=== PATIENT | female | born 1990 | race Caucasian/White ===

== ENCOUNTER 2020-08-14 08:12 | Outpatient (REF) | payer MEDICARE, MEDICAID, SELFPAY ==
[2020-08-14 11:13] LABS: MANUAL DIFF FLAG NO
[2020-08-14 11:19] LABS: Basophils Percent Auto 0.5 % (0-2); Eosinophils Absolute Auto 0.2 X10*3/uL (0.0-0.4); Eosinophils Percent Auto 2.5 % (0-4); Hematocrit 38.6 % (37-47); Hemoglobin 12.8 g/dl (12.0-16.0); Imm Gran Abs Auto 0.02 X10*3/uL (0.00-0.03); Imm Gran Pct Auto 0.3 % (0.0-0.4); Lymphocytes Absolute Auto 2.4 X10*3/uL (1.2-4.9); Lymphocytes Percent Auto 40.8 % (20-40); Mean Corpuscular HGB Conc 33.2 g/dl (31.0-35.0); Mean Corpuscular Hemoglobin 28.6 pg (27.0-33.0); Mean Corpuscular Volume 86.4 fL (80-98); Mean Platelet Volume 9.6 fL (9.4-12.3); Monocytes Absolute Auto 0.5 X10*3/uL (0.1-1.2); Neutrophils Absolute Auto 2.8 X10*3/uL (2.0-8.3); Neutrophils Percent Auto 46.9 % (45-73); Platelet Count 220 X10*3/uL (160-400); Red Blood Count 4.47 X10*6/uL (4.20-5.50); Red Cell Distribution Width 12.1 % (11.0-16.0); White Blood Count 5.9 X10*3/uL (4.8-10.8)
[2020-08-14 12:09] LABS: TSH reflex Free T4 0.84 uIU/mL (0.32-4.0); Vitamin D 25-OH Total 37.9 ng/mL (>30)
[2020-08-14 12:13] LABS: Folate 19.2 ng/mL (> or = 4.0); Vitamin B12 689 pg/mL (200-900)
[2020-08-14 12:16] LABS: Alanine Aminotransferase 20 U/L (0-31); Albumin Level 4.4 g/dL (3.5-5.0); Alkaline Phosphatase 47 U/L (39-117); Anion Gap 11 (12-20); Aspartate Amino Transferase 23 U/L (5-31); Bilirubin Total 0.2 mg/dL (0.0-1.0); Blood Urea Nitrogen 11 mg/dL (9-16); Calcium 9.2 mg/dL (8.4-10.2); Carbon Dioxide 29 mmol/L (22-29); Chloride 105 mmol/L (96-108); Cholesterol 128 mg/dL; Estimated Glomerular Filt Rate > 60; Glucose Fasting 84 mg/dL (60-99); HDL Cholesterol 53 mg/dL; LDL Cholesterol Calculated 67 mg/dl; Sodium 141 mmol/L (135-145); Total Protein 7.2 g/dL (6.5-8.0); Triglycerides 44 mg/dL
== END 2020-08-14 08:13 | disposition home or self-care (01) ==
LOC: HO.HMGCLDS 08:12
PROVIDERS: PCP Internal Medicine; Visit Provider Internal Medicine
DX: Z00.01 Encounter for general adult medical examination with abnormal findings (principal); K59.09 Other constipation; R12 Heartburn; F43.10 Post-traumatic stress disorder, unspecified; F31.9 Bipolar disorder, unspecified
CPT/HCPCS: 36415; 80053; 80061; 82306; 82607; 82746; 84443; 85025

== ENCOUNTER → 2020-09-20 08:51 | Outpatient (BNVA) | payer MEDICARE, MEDICAID, SELFPAY | PROVIDERS: PCP Internal Medicine; Visit Provider Physician Assistant | DX: Z13.89 Encounter for screening for other disorder (principal) | CPT/HCPCS: Q3014 ==

== ENCOUNTER 2020-11-27 17:58 | Emergency (ER) | payer MEDICARE, MEDICAID, SELFPAY ==
[2020-11-27 19:15] VITALS: BP 107/72; PULSE 77; RESP 16; TEMP 36.5; O2SAT 98; BMI 18.5
--- NOTE | 2020-11-27 19:40 | PC.NURSE ---
PT REPORTS AWAKENING WITH SMALL BUMP TO LEFT SIDE OF HEAD 2 DAYS AGO- DENIES TRAUMA, NO OTHER LUMPS NOTED ON SCALP. EVALUATED BY TIA GARIBAY. AWAITING ABX ADMINISTRATION AND DC.
--- NOTE | 2020-11-27 19:57 | ED_ITS ---
HPI - General Adult General Chief complaint: General Medical Stated complaint: head injury Time Seen by Provider: 11/27/20 19:32 Source: patient Mode of arrival: ambulatory Limitations: no limitations History of Present Illness HPI narrative: Patient presents to ED for small painful lump on left scalp. Patient states she woke up with it 3 days ago. Patient denies any head trauma, headache, dizziness, nausea, vomiting, fever, chills. Related Data Previous Rx's Medication Instructions Recorded methylcellulose (laxative) 500 mg 500 mg PO BID #60 tab 09/20/20 tablet omeprazole 20 mg capsule,delayed 20 mg PO DAILY #30 cap 09/20/20 release cephalexin 500 mg PO QID #28 cap 11/27/20 mupirocin 1 appl TOPICAL TID 7 Days #22 g 11/27/20 Allergies Allergy/AdvReac Type Severity Reaction Status Date / Time No Known Allergies Allergy Verified 09/20/20 08:51 Review of Systems Review of Systems: Yes all other systems are reviewed and are negative Constitutional: Constitutional: Reports as per HPI and Reports no additional constitutional complaints Eyes: Eyes: Reports as per HPI and Reports no additional eye complaints ENT: Reports system reviewed and no additional complaints, except as documented and Reports as per HPI Comments: Small lump Cardiovascular: Cardiovascular: Reports as per HPI and Reports no additional cardiovascular complaints Comments: small lump on left scalp Respiratory: Respiratory: Reports as per HPI and Reports no additional respiratory complaints Gastrointestinal: Gastrointestinal: Reports as per HPI and Reports no additional gastrointestinal complaints Genitourinary: Genitourinary: Reports no additional female genitourinary complaints and Reports as per HPI Musculoskeletal: Musculoskeletal: Reports no additional musculoskeletal complaints and Reports as per HPI Neurologic: Reports system reviewed and no additional complaints, except as documented and Reports as per HPI Psychiatric: Psychiatric: Reports no additional psychiatric complaints and Reports as per HPI PMF Past Medical History Medical History (Updated 11/27/20 @ 20:29 by LANI Austin) Anxiety Bipolar 1 disorder Chronic constipation Chronic heartburn Cleft palate Hearing impairment Hx of cleft palate Ovarian cancer PTSD (post-traumatic stress disorder) Speech impediment Surgical History (Updated 09/20/20 @ 08:52 by KEVON oRgers) H/O colonoscopy History of esophagogastroduodenoscopy (EGD) Hx of tooth extraction Family History Family History Father Family hx of hypertension Hx of Lyme disease Mother History of COPD Social History Social History (Updated 09/20/20 @ 09:15 by Vanesa Campos PA-C) Household Members: None Household Members Other:: Boyfriend Alcohol intake: never Patient Tobacco Use Status: Never used Tobacco Use of substances other than those prescribed or required for medical reasons: No Substance Use Type: Marijuana Advance Directives: No Advance Directives Information Provided: Yes Patient : No Physical Exam Vital Signs: Vital Signs: Last Vital Signs Temp 97.7 F 11/27/20 19:15 Pulse 77 11/27/20 19:15 Resp 16 11/27/20 19:15 BP 107/72 11/27/20 19:15 Pulse Ox 98 11/27/20 19:15 Body Mass Index 18.5 Const: General: cooperative, healthy appearing, comfortable, no acute distress, well developed, alert, awake and Physically active Orientation/consciousness: patient oriented x3 HENMT: Other: left parietal follictulitis Head: Yes normal to inspection, Yes No palpable skull fracture present, Yes normocephalic, Yes atraumatic, No abras ion, No Acrocyanosis present, No Avelar's sign, No raccoon eyes and Yes scalp lesion (Small area of erythema with tender lump, but not fluctulant.) Eyes: General: appearance normal, both eyes and all related structures Neck: Neck: Yes normal visual inspection, Yes full ROM, Yes no lymphadenopathy, Yes no meningeal signs, Yes trachea midline, Yes supple and No tender Chest: Chest palpation & inspection: normal inspection of the chest and normal palpation of entire chest wall Resp: Effort & Inspection: normal respiratory effort and able to speak in complete sentences Auscultation: clear to auscultation bilaterally Cardio: Jugular venous distension: no JVD Heart sounds: S1 normal heart sound present and S2 normal heart sound present GI: Inspection: Yes normal to inspection and No abdominal wall ecchymosis Palpation (GI): not soft, not firm, nontender, no guarding and not rigid : General: No CVA tenderness and Yes no CVA tenderness Back/Spine/Pelvis: Back: no CVA tenderness, No CVA tenderness and No back tenderness Skin: General skin exam: no rashes or lesions noted and elasticity normal Neuro: General: patient oriented x3, gait normal, no meningeal signs and CN's II-XI intact bilaterally Cranial nerves: Yes CN's II-XII intact bilaterally Extrem: General: Yes normal to inspection and Yes full ROM Psych: Appearance: grossly normal, poorly kempt and not disheveled Course Course Course Narrative: Mild folliculitis. No abscess needed for drainage Reevaluation(s) Reevaluation #1: Discharged with antibiotics. Patient will be discharged with muciporin and cephalexin. Time: 20:26 Medical Decision Making [facility] Narrative Medical decision making narrative: folliculitis Discharge Plan Discharge Clinical Impression: Folliculitis Patient Disposition: Home, Self-Care Instructions: Folliculitis (ED) Additional Instructions: return to the ED increased in size, worsening redness, pus discharge, headache, fever, chills, or any other concerning symptoms. Please follow up with PCP Prescriptions: New mupirocin 2 % ointment 1 appl topical TID 7 Days Qty: 22 RF: 0 cephalexin 500 mg capsule 500 mg PO QID Qty: 28 RF: 0 No Action omeprazole 20 mg capsule,delayed release(DR/EC) 20 mg PO DAILY Qty: 30 RF: 5 Citrucel 500 mg tablet 500 mg PO BID Qty: 60 RF: 5 Interventions: ED Discharge Assessment Last Done: 11/27/20 21:03 Discharge Date/Time: 11/27/20 21:04 Print Language: Kyrgyz
== END 2020-11-27 21:04 | disposition home or self-care (01) ==
PROVIDERS: Emergency Provider Emergency Medicine
DX: L73.9 Follicular disorder, unspecified (principal)
CPT/HCPCS: 99283; 99284

== ENCOUNTER 2021-04-04 13:29 | Outpatient (REF) | payer OTHER, MEDICAID, SELFPAY ==
--- NOTE | 2021-04-15 12:53 | MHC.AU.HAS ---
Hearing Aid Evaluation Date of Visit: 04/04/21 Historical Information: Description of Hearing: Moderate/moderately-severe mixed hearing loss bilaterally Summary: Patient was seen by ENT, Dr. Luu, who provided medical clearance for hearing aids. Patient has a history of cleft palate and chronic middle ear dysfunction. She experiences intermittent discharge from both ears and has narrow canals. History of developmental delay and mental health diagnoses. She has been using a BTE-like personal amplifier that was obtained from [employer]. She does not feel it has been meeting her needs. Patient was initially interested in customs and did not want them to visible. She was also interested in rechargeability for each of use. Discussed that due to her narrow canal size, the instruments would need to be made much larger than what she had in mind, and would likely be visible. It would also not be ideal to put electronics inside of her ear, with either a CIC or DIONTE, as the ear discharge could damage the electronics. Discussed that if we ever did try CICs, and the size of the instruments was her main concern, we would likely to need to have them made without Bluetooth or a rechargeable battery, as those options would increase the size of the instruments. Patient became visibly anxious, stating she wanted more time to think about it, and left the room. Her father, who accompanied her to the appointment, requested that we try a pair of hearing aids of my recommendation, and see how she likes them. We will try BTEs with slim tubes. Hearing Aid Prescription: Based on the individual?s shared listening needs, communication environments, dexterity, desire for connectivity, and personal preferences, the following prescription for amplification has been made: Right ear: Hammer Mill Operator: [employer] Model: Evolv AI 1600 BTE R Battery Size: Rechargeable Color: Champagne Tubing: Size 1 slim tube Left ear: Hammer Mill Operator: [employer] Model: Evolv AI 1600 BTE R Battery Size: Rechargeable Color: Champagne Tubing: Size 1 slim tube Action Taken/Action Needed: Hearing Instrument Fitting to be scheduled when materials arrive Primary Diagnosis: H90.6 Mixed Hearing Loss, Bilateral Signature: Provider: Lalit Siegel, CCC-A
== END 2021-04-04 13:30 | disposition home or self-care (01) ==
LOC: HO.HAP 13:29
PROVIDERS: Visit Provider Otolaryngology
DX: Z13.89 Encounter for screening for other disorder (principal)

== ENCOUNTER 2021-05-30 09:55 | Outpatient (REF) | payer OTHER, MEDICAID, SELFPAY ==
--- NOTE | 2021-05-30 12:29 | MHC.AU.HFU ---
Hearing Instrument Follow-Up- Binaural Date of Visit: 05/30/21 Right Ear: System Operator: [employer] Model: Evolv AI 1600 BTE R Serial Number: [id number] Repair Warranty: 08/17/2024 Battery Size: Rechargeable Color: Champagne Tubing: Size 1 slim tube Type of Wax Guard: NONE Date of Fitting: Unable to fit aids today per Cristel Ghotra. Cannot dispense each aid at separate appointments Left Ear: System Operator: [employer] Model: Evolv AI 1600 BTE R Serial Number: Battery Size: Rechargeable Color: Champagne Tubing: Size 1 slim tube Type of Wax Guard: NONE Follow-Up Summary: Patient scheduled for a Hearing Aid Fitting. Right aid able to connect to PAPA, but left would not despite several troubleshooting strategies and calling [employer] - Giovanna Cummings. Sending the left aid RFC and [employer] sending a replacement. (Note, after the aid was in the RFC package and I was completing paperwork, the aid started working when in the shipping box 15-20 minutes after last being taken off the upholstery instructor. Still asking for replacement as I do not want this to be a potentially ongoing problem for the patient.) Recommendations:WHEN REPLACEMENT IN, PLEASE CHARGE AND VERIFY BOTH AIDS ARE CONNECTING TO PAPA. Then call patient to schedule HAF. Diagnosis Code(s): Primary Diagnosis: H90.3 Bilateral Sensorineural Hearing Loss Signature: Provider: Lalit Woods, [facility]
== END 2021-05-30 09:56 | disposition home or self-care (01) ==
LOC: HO.HAP 09:55
DX: Z13.89 Encounter for screening for other disorder (principal)

== ENCOUNTER 2021-06-13 12:20 | Outpatient (REF) | payer OTHER, MEDICAID, SELFPAY ==
--- NOTE | 2021-06-13 14:15 | MHC.AU.HFA ---
Hearing Instrument Fitting- Adult- Binaural Date of Visit: 06/13/21 Hearing Instruments Dispensed: Right Ear: Medical Center Manager: [employer] Model: Evolv AI 1600 BTE R Serial Number: [id number] Repair Warranty: 08/17/2024 Loss and Damage Warranty: 08/17/2024 Battery Size: Rechargeable Color: Champagne Tubing: Size 1 slim tube Type of Dome: Size 7mm Occluded Comfort [place] Left Ear: Medical Center Manager: [employer] Model: Evolv AI 1600 BTE R Serial Number: [id number] Repair Warranty: 09/01/2024 Loss and Damage Warranty: 09/01/2024 Battery Size: Rechargeable Color: Champagne Tubing: Size 1 slim tube Type of Dome: Size 7mm Occluded Comfort [place] Summary of Fitting: Feedback canceller run. Verifit performed and levels adjusted to better reach targets. Patient felt the left needed to be louder so it would balance with the right side- increased by 3 steps. Patient was pleased with the sound of the hearing aids. Hearing aid care and maintenance were discussed and demonstrated. Patient did not want the hearing aids paired to her phone at this time. Discussed how to pair the hearing aids, in case she would like them paired later on. Recommendations: Patient will call for follow-up as needed. Diagnosis Code(s): Primary Diagnosis: H90.6 Mixed Hearing Loss, Bilateral Signature: Provider: Lalit Siegel, [facility]
== END 2021-06-13 12:21 | disposition home or self-care (01) ==
LOC: HO.HAP 12:20
PROVIDERS: PCP Internal Medicine; Visit Provider Otolaryngology
DX: Z46.1 Encounter for fitting and adjustment of hearing aid (principal); H90.6 Mixed conductive and sensorineural hearing loss, bilateral
CPT/HCPCS: V5011; V5020; V5160; V5261

== ENCOUNTER 2021-07-18 14:33 | Outpatient (REF) | payer OTHER, MEDICAID, SELFPAY ==
--- NOTE | ~2021-07-18 | XR_ITS ---
EXAMINATION: XR BILATERAL HIPS WITH AP PELVIS CLINICAL INFORMATION: Pain in bilateral hip and pelvis COMPARISON: None TECHNIQUE: AP view of the pelvis and 2 views of each hip were obtained. FINDINGS: AP pelvis: There is normal symmetry of bilateral hip joints and SI joints. No visible acute fracture, dislocation or subluxation seen. AP and frog-leg views right hip reveal no fracture, dislocation or bony erosive changes. The soft tissues are normal. AP and frog-leg views left hip reveals no fracture, dislocation or lytic process. The soft tissues are normal. XR/XR hip BI w PEL1V IMPRESSION: Unremarkable AP pelvis and bilateral hip exam.
== END 2021-07-18 14:34 | disposition home or self-care (01) ==
LOC: HO.HMGCX 14:33
PROVIDERS: PCP Internal Medicine; Visit Provider Internal Medicine
DX: M25.551 Pain in right hip (principal); M25.552 Pain in left hip
CPT/HCPCS: 73521

== ENCOUNTER 2023-05-19 11:19 | Outpatient (REF) | payer SELFPAY ==
--- NOTE | 2023-05-19 12:55 | MHC.AU.HA3 ---
Hearing Instrument Follow-Up- Binaural Date of Visit: 05/19/23 Right Ear: Make, Model, Color, Serial Number: [id number] Viscosity Tester Repair Warranty: 08/17/2024 Viscosity Tester Loss and Damage Warranty: 08/17/2024 [facility] Service Plan: Battery Size: Rechargeable Manager Management/Slim Tube: 1 [place]old/Dome/CShell/SlimTip: Type of Wax Guard: None Left Ear: Make, Model, Color, Serial Number: [id number] Viscosity Tester Repair Warranty: 09/01/2024 Viscosity Tester Loss and Damage Warranty: 09/01/2024 [facility] Service Plan: Battery Size: Rechargeable Manager Management/Slim Tube: 1 Earmold/Dome/CShell/SlimTip: Type of Wax Guard: None Follow-Up Summary: Diamond is here for a hearing aid check, reporting pain in her left ear for about a year. She also reports the hearing aid has been cutting in and out and does not have a dome, and her right aid has a broken slim tube. Otoscopy shows a dome deep in her left canal, which appears very red and irritated with significant white debris. Recommended calling her PCP for an appointment to remove the dome and treat any potential infection. Cleaned both aids which had significant debris under the nicolasa covers and replaced both broken slim tubes. Listening check ok after cleaning. Diamond has [facility] Hearing and it appears we cannot bill her [facility] for her services. She knows she can pay for future appointments or contact her insurance plan for more information on covered services. Recommendations: Recommendations: Hearing instrument follow-up or maintenance as needed. Recommendations: Contact PCP for foreign body removal from left ear canal Diagnosis Code(s): Primary Diagnosis: H90.6 Mixed Hearing Loss, Bilateral Signature: Provider: Lalit Bell, CCC-A
== END 2023-05-19 11:20 | disposition home or self-care (01) ==
LOC: HO.HAP 11:19
PROVIDERS: Visit Provider Internal Medicine
DX: Z13.89 Encounter for screening for other disorder (principal)

== ENCOUNTER 2023-05-26 09:50 | Outpatient (AMB) | payer OTHER, SELFPAY ==
[2023-05-26 11:22] VITALS: BP 114/70; PULSE 82; TEMP 36.8; O2SAT 100
--- NOTE | 2023-05-26 11:22 | AM.OFFWIN_ITS ---
Intake Vital Signs 05/26/23 11:22 Weight 100 lb 2 oz BP 114/70 Blood Pressure Location Rt brachial Position Sitting Pulse 82 Pulse Source Pulse Oximeter Temp 98.2 F Temp Source Temporal Artery Scan Pulse Oximetry (%) 100 Oxygen Delivery Method Room Air Intake Visit Reasons: EP, piece of hearing aid stuck in left ear Intake Note: Pt is here c/o having a piece of her hearing aid stuck in her left ear. Patient Tobacco Use Status: Never used Tobacco Allergies No Known Allergies Allergy (Verified 05/26/23 11:24) HPI HPI Comments History of Present Illness Details This is a 32-year-old female presenting for evaluation of a foreign body in her left ear. Patient saw her health informatics specialist today to have her hearing aids adjusted and they discovered the rubber tip of her hearing aid was lodged in her left ear canal. The patient states that the piece may have been present for up to six months in her ear canal. Patient denies having any overt discomfort in her left ear. Patient states that she does not currently have an ENT physician of record secondary to a change in her health insurance. [facility], [facility] Medical History Eustachian tube obstruction, intrinsic cartilagenous Hx of cervical cancer Hip pain, bilateral Chronic constipation Cleft palate Ovarian cancer Chronic heartburn PTSD (post-traumatic stress disorder) Bipolar 1 disorder Anxiety Speech impediment Hearing impairment Hx of cleft palate Surgical History History of esophagogastroduodenoscopy (EGD) H/O colonoscopy Hx of tooth extraction Family History Father Family hx of hypertension Hx of Lyme disease Mother History of COPD Social History Household Members: None Household Members Other:: Boyfriend Housing: Apartment Alcohol intake: never Patient Tobacco Use Status: Never used Tobacco e-Cigarette/Vaping Use: Never Used Substance Use Type: Marijuana Current occupational status: unemployed Review of Systems Const All systems reviewed & are unremarkable except as noted in HPI and below Denies chills, Denies fever(s) and Denies malaise Eyes Reports as per HPI ENT Reports as per HPI (foreign body left ear canal) and Reports other (no overt change in hearing noted bilaterally) Skin/Breast Reports system reviewed and no additional complaints, except as documented Neuro Reports no additional complaints Psych Reports no additional complaints Physical Exam Vital Signs: Last Vital Signs Temp 98.2 F 05/26/23 11:22 Pulse 82 05/26/23 11:22 BP 114/70 05/26/23 11:22 Pulse Ox 100 05/26/23 11:22 Oxygen Delivery Method Room Air 05/26/23 11:22 Const General: cooperative, healthy appearing, comfortable, no acute distress and well developed Nutritional Appearance: average body habitus Orientation/consciousness: patient oriented x3 Limitations: no limitations HEENT Head: Yes normal to inspection Ears: external ears normal, Abnormal EAC present (cedeno colored foreign body noted left ear canal anterior aspect) and other (no erythema, edema surrounding foreign body) General nose exam: Normal external nose present Neuro General: patient oriented x3 Psych Appearance: grossly normal Mental Status: mental status grossly normal Insight: Good insight present (Psych) Judgement: Good judgement present (Psych) Office Procedures Foreign Body Removal 59220-Lsdullk body removal, simple (FB left ear canal; unable to sucessfully remove with forceps or curette) Procedure code (CPT) selection complete Assessment & Plan Assessment & Plan (1) Foreign body in left ear: Code(s): T16.2XXA - Foreign body in left ear, initial encounter Plan: Referral to ENT for foreign body removal has been placed. No further intervention required today in the clinic. Orders: Referrals Ear/Nose/Throat Referral T16.2XXA - Foreign body in left ear, initial encounter Coding Level of Care Code Est Pt Level 3 (98284) Diagnoses Foreign body in left ear T16.2XXA CPT Codes Details - Foreign body simple: 13813-Egplukq body removal, simple ([id number]) Time Spent (min) 25
== END 2023-05-26 12:20 | disposition home or self-care (01) ==
PROVIDERS: PCP Internal Medicine; Visit Provider Physician Assistant
DX: T16.2XXA Foreign body in left ear, initial encounter (principal)
CPT/HCPCS: 10120; 99213

== ENCOUNTER 2025-03-22 13:59 | Emergency (ER) | payer OTHER, SELFPAY ==
[2025-03-22 14:18] VITALS: BP 146/81; PULSE 100; RESP 18; TEMP 36.6; O2SAT 100; BMI 17.6
--- NOTE | 2025-03-22 14:20 | ED.GENADULT ---
HPI - General Adult General Chief complaint: General Medical Stated complaint: hearing aid stuck in ear Time Seen by Provider: 03/22/25 16:09 History of Present Illness ED Provider: Louie CANCHOLA narrative: The patient is a 34-year-old woman with a history of poor hearing who wears hearing aids. About 4 or 5 hours prior to coming to the emergency room she removed her right hearing aid and the inner portion of the hearing aid got stuck in her ear canal. She was unable to remove it and came to the emergency department. No other symptoms. Related Data Previous Rx's ?Medication ?Instructions ?Recorded ofloxacin 0.3 % ear drops 10 drp otic (ears) BID 7 days #5 mL 03/22/25 Allergies Allergy/AdvReac Type Severity Reaction Status Date / Time No Known Allergies Allergy Verified 03/22/25 14:20 Review of Systems Review of Systems: Yes all other systems are reviewed and are negative PMFSH Past Medical History Medical History Eustachian tube obstruction, intrinsic cartilagenous Hx of cervical cancer Hip pain, bilateral Chronic constipation Cleft palate Ovarian cancer Chronic heartburn PTSD (post-traumatic stress disorder) Bipolar 1 disorder Anxiety Speech impediment Hearing impairment Hx of cleft palate Surgical History History of esophagogastroduodenoscopy (EGD) H/O colonoscopy Hx of tooth extraction Family History Family History Father Family hx of hypertension Hx of Lyme disease Mother History of COPD Social History Social History Household Members: None Household Members Other:: Boyfriend Housing: Apartment Alcohol intake: never Patient Tobacco Use Status: Never used Tobacco e-Cigarette/Vaping Use: Never Used Substance Use Type: Marijuana Advance Directives: No Advance Directives Information Provided: Yes Do you have a plan to hurt others: No Plan Current occupational status: unemployed Physical Exam ED Vital Signs: Vital Signs - 24 hr 03/22/25 14:18 Temperature 97.9 F Pulse Rate 100 Respiratory Rate 18 Blood Pressure 146/81 H Pulse Oximetry 100 Oxygen Delivery Method Room Air BMI result Body Mass Index 17.6 Const Other: The patient is awake, alert, pleasant, cooperative. HENMT Other: The patient had a tubular like foreign body in the right ear canal that was somewhat difficult to visualize. There was some associated discharge around the foreign body. The left ear canal had no foreign matter but the tympanic membrane looked quite abnormal in a chronic manner. Eyes General: appearance normal, both eyes and all related structures Neck Neck: Yes full ROM Resp Effort & Inspection: normal respiratory effort Skin Other: The skin is dry and unremarkable Neuro Other: The patient is awake and alert, pleasant and cooperative. She is hard of hearing but otherwise seems neurologically intact. Gait is normal. Extrem Other: No peripheral edema Course Course Course Narrative: This is a Rapid Medical Examination (RME) performed by Davina Coulter PA-C in triage. Full HPI, ROS, assessment and treatment plan per primary provider in the Main ED. Hx: 34 yo F here for eval of rubber tup of hearing aid stuck in R ear since this morning. no complaints. Plan: unable to remove from triage, pending bed in ED Procedures FB Removal Ear Location: ear canal (R) Foreign Body Suspected: other plastic (Hearing aid component) TM intact pre-procedure: unable to visualize Foreign Body Removed: yes Foreign Body Removal Technique: instrumentation (Alligator forceps) Patient Tolerated Procedure: well Complications: none Additional Comments: On re-examination after removal of the foreign body I felt that the patient has tympanic membrane was very abnormal which I suspect is baseline for the patient. Her other tympanic membrane also looked chronically abnormal. There was no obvious sign of a tympanic membrane perforation but the the tympanic membrane was sufficiently abnormal that I could not be certain.. Medical Decision Making Medical Decision Making [facility] Narrative: The patient is a 34-year-old female who presents with foreign body in her right ear canal. A component of her hearing aid came off and is stuck in her ear canal. I was able to move the ear canal using alligator forceps. This took a few attempts. Examining the ear canal after removal of the foreign body with the an otoscope the patient has right tympanic membrane looked very abnormal. I suspect this is chronic. I do not see any definite perforation. The left tympanic membrane also looks chronically abnormal. I will prescribe a course of ofloxacin otic 10 drops b.i.d. x5 days. She is advised to follow up with the ENT of [facility]. Discharge Plan Discharge Clinical Impression: Acute foreign body of left ear canal Patient Disposition: Home, Self-Care Instructions: Ear Foreign Body (ED) Additional Instructions: I have sent a prescription for antibiotic drops to the [facility]. Please administer 10 drops to the ear this evening and then 2 times a day for the next 5-7 days. I think it would be good for hearing instrument specialist to look in your ear. Please contact ENT [facility] tomorrow to see if you can set up a follow up appointment. Otherwise follow up with your regular doctor. Return to the emergency room if worse. Prescriptions: New ofloxacin 0.3 % drops 10 drp otic (ears) BID 7 Days Qty: 5 0RF Referrals: [facility] [Outside] Clinical Impression: Acute foreign body of left ear canal Jeison Conti III, MD [Primary Care Provider, Medical] Clinical Impression: Acute foreign body of left ear canal Print Language: Monegasque
[2025-03-22 16:46] VITALS: BP 146/81; PULSE 100; RESP 18; TEMP 36.6; O2SAT 100
--- OUTSIDE RECORDS SUMMARY | 2025-03-22 19:24 | XMS_ITS | Data Portability ---
Author Organization [place] - [facility], Allergy Address [address] [address] Care Team Providers Care Director Of Corporate Strategy Name Role Phone ANGELA ESTEFANÍA Primary Care Provider [phone] Assessment Encounter Date Assessment Date Assessment LastModified by Organization Details LastModified Time 06/02/2024 06/02/2024 Patient with evidence of bilateral otitis externa. Recommend 2 weeks course of ofloxacin. Recommend dry ear precautions, Q-tip avoidance, and refrain from wearing hearing aid. Return in 3-4 weeks. Once the infection clears, will update audiometric testing and hearing aid settings. Not available 06/02/2024 13:53:53 07/07/2024 07/07/2024 Patient with persistent otitis externa bilaterally. Swabbed today and will be submitted for culture. I suspect there are contributory hygiene concerns and it may be difficult to achieve resolution. Follow up in 4 weeks, with audiometric testing after exam if the infection has resolved. Discussed ultimately we may end up needing to fill the ear with ointment for 29/12 treatment. Not available 07/07/2024 14:46:19 08/23/2024 08/23/2024 Left otitis externa has resolved. Right ear has markedly improved. Still scant otorrhea. Recommend one more week of twice daily ofloxacin therapy and return in 10-14 days to verify resolution. Continue dry ear precautions. Leave hearing aid out as much as possible. Clean with alcohol wipe after removal and before insertion. Not available 08/23/2024 14:34:35 Plan of Treatment Reminders Order Date Submit Date Provider Last Modified By Organization Details Last Modified Time Details Appointments None recorded. Lab fungus, culture, unspecified specimen 2024 025 [facility] (Centralized Electronic Ordering - All Locations), Patient Can Go To The Location Of Their Choice, [id number] 5 11:50:16 culture, bacterial 2024 025 [email or web address] (Centralized Electronic Ordering - All Locations), Patient Can Go To The Location Of Their Choice, [id number] 5 16:54:59 Referral None recorded. Procedures None recorded. Surgeries None recorded. Imaging None recorded. Medication Orders ofloxacin 0.3 % ear drops 2023 024 [id number], [address] [facility], [place], [address], 13:42:26 Patient TargetsNo targets recorded. Patient InstructionsNo instructions recorded. Reason for Referral None Reported. Results Created Date Observation Date Name Description Value Unit Range Abnormal Flag Note LastModifiedBy Organization Detail LastModifiedTime 07/07/1907/10/2024 ANAER OBIC AND AEROB IC CULTU RE aerobic culture Final report Not Available [facility] ([facility]) [address] [place], [address], 08/05/2024 07:17:20 07/07/19 25 07/10/2024 ANAER OBIC AND AEROB IC CULTU RE result 1 COMMEN T No growt h in 36 - 48 hours . Not Available [facility] ([facility]) [address] [place], [address], 08/05/2024 07:17:20 07/07/19 25 07/11/2024 ANAER OBIC AND AEROB IC CULTU RE anaerobic culture Final report abnormal Not Available [facility] ([facility]) [address] [place], [address], 08/05/2024 07:17:20 07/07/19 25 07/11/2024 ANAER OBIC AND AEROB IC CULTU RE result 1 Cutiba cteriu m acnes abnormal Scant growt h Susce ptibi lity not shayy lly perfo rmed on this organ ism. Not Available [facility] ([facility]) [address] [facility], [place], [address], 08/05/2024 07:17:20 07/07/19 25 07/08/2024 FUNGU S CULTU RE WITH STAIN fungus stain Final report Not Available [facility] ([facility]) [address] [facility], [place], [address], 08/05/2024 07:17:20 07/07/19 25 07/08/2024 FUNGU S CULTU RE WITH STAIN result 1 COMMEN T DELIA/C alcof luor prepa ratio n: no fungu s obser amol. Not Available [facility] ([facility]) [address] [facility], [place], [address], 08/05/2024 07:17:20 07/07/19 25 08/05/2024 FUNGU S CULTU RE WITH STAIN fungus (mycology) culture Final report Not Available [facility] ([facility]) [address] [facility], [place], [address], 08/05/2024 07:17:20 07/07/19 25 08/05/2024 FUNGU S CULTU RE WITH STAIN result 1 COMMEN T No yeast or mold isola chris after 4 weeks . Not Available [facility] ([facility]) [address] [facility], [place], [address], 08/05/2024 07:17:20 06/02/20 audio gram No observ ation record ed. BARCODE Not Available 2023 17:51:40 06/06/2002/27/1924 audio gram No observ ation record ed. BARCODE Not Available 2023 11:21:38 Result Notes None recorded. 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 12117116 Active 2020 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, bilatera l; Note: Date Diagnose d: 1 2:50 PM (H68.123 ) Not Available [facility] 4 03:05:28 Cleft palate 44731553 Active 2020 Cleft palate, unspecif ied; Note: Date Diagnose d: 1 2:51 PM (Q35.9) Not Available [facility] 4 03:05:28 Otorrhea of bilatera l ears 71549895657 57220 Completed 202001/08/2024 Otorrhea , bilatera l; Note: Date Diagnose d: 01/08/2021 5:23 PM (H92.13) Not Available [facility] 4 03:05:27 Granulom atous disorder of the skin and subcutan eous tissue 583359189 Completed 202001/08/2024 Granulom atous disorder of the skin and subcutan eous tissue, unspecif ied; Note: Date Diagnose d: 02/07/2021 1:58 PM (L92.9) Not Available [facility] 4 03:05:27 Mixed conducti ve and sensorin eural hearing loss of left ear 32102877718 107 Active 2020 Mixed conducti ve and sensorin eural hearing loss, unilater al, left ear with restrict ed hearing on the contrala teral side; Note: Date Diagnose d: 1 2:07 PM (H90.A32 ) Not Available [facility] 4 03:05:28 Conducti ve hearing loss of right ear 0767138116 Active 2020 Conducti ve hearing loss, unilater al, right ear with restrict ed hearing on the contrala teral side; Note: Date Diagnose d: 1 2:07 PM (H90.A11 ) Not Available [facility] 4 03:05:29 Bilatera l chronic tympanit is 04353040822 77033 Active 2022 Chronic myringit is, bilatera l; Note: Date Diagnose d: 05/28/20 23 11:05 AM (H73.13) Not Available [facility] 4 03:05:27 Foreign body in left ear 05614684706 203108 Active 2022 Foreign body in left ear, initial encounte r; Note: Date Diagnose d: 05/28/20 23 11:05 AM (T16.2XX A) Not Available [facility] 4 03:05:29 Acute infectiv e otitis externa 825826126 Active 2023 Bhanu bose [place] - [facility] 4 13:41:20 Otorrhea 57091675 Active 2024 Bhanu bose [place] - [facility] 5 13:33:41 Problem Notes None recorded. Medical Equipment None Reported. Allergies No known drug allergies Medications Name Sig Start Date Stop Date Status Note LastModified by Organization Details LastModified Time lamotrigi ne 25 mg tablet TAKE 1 TABLET BY MOUTH DAILY X1 WEEK, THEN INCREASE TO 2 TABLETS DAILY IF TOLERATI NG WELL active Not Available Not Available No t Available ofloxacin 0.3 % ear drops Instill 5 drops twice a day by otic route for 14 days, for both ears. 2023 active Not Available Not Available Not Avai lable paroxetin e 20 mg tablet TAKE 1 TABLET BY MOUTH EVERY MORNING active Not Available Not Available No t Available doxycycli ne hyclate 100 mg tablet Take 1 tablet twice a day by oral route with meal(s) for 14 days. 08/23 completed Not Available Not Available Not Available lamotrigi ne 100 mg tablet TAKE 1 TABLET BY MOUTH EVERY DAY active Not Available Not Available No t Available amoxicill in 875 mg-potass ium clavulana te 125 mg tablet by mouth 02/07 completed Medicati on ID: [id number] P jayribe d By Name: Jero Francois nd Name: amoxicil lizette-pot clavulan ate Send Method: E-Prescr ibed Sub s Allowed: subs OK Speci al Instruct ion: Take 1 tablet by mouth every 12 hours Me dication GenericN lara: amoxicil lizette-pot clavulan ate Not Available Not Available Not Available aripipraz ole 10 mg tablet TAKE 1 TABLET BY MOUTH EVERY DAY active Not Available Not Available No t Available aripipraz ole 5 mg tablet TAKE 1 TABLET BY MOUTH EVERY DAY active Not Available Not Available No t Available ciproflox acin 0.3 %-dexamet hasone 0.1 % ear drops,[facility] 08/23 completed Medicati on ID: [id number] D uration Value: 10 Brand Name: ciproflo xacin-de xamethas one Send Method: E-Prescr ibed Sub s Allowed: subs OK Speci al Instruct ion: Apply 4 drops to each ear twice a day for 10 days Med icationG enericNa me: ciproflo xacin-de xamethas one Not Available Not Available Not Available buprenorp fouzia 8 mg-naloxo ne 2 mg sublingua l film PLACE & DISSOLVE 1 & 1/2 FILM UNDER THE TONGUE DAILY FOR 7 DAYS active Not Available Not Available No t Available Vitals Date Recorded Body height Body mass index (BMI) Body weight Provider Name and Address Organization Details Last Updated DateTime 07/07/2024 152.4 cm 19.5 kg/m2 74204.24 g Radha Oreilly [place] - [facility] 07/07/2024 13:27:25 Date Recorded Body height Body mass index (BMI) Body weight Provider Name and Address Organization Details Last Updated DateTime 08/23/2024 152.4 cm 19.5 kg/m2 40722.24 g Radha Oreilly [place] - [facility] 08/23/2024 14:21:46 Date Recorded Body height Body mass index (BMI) Body weight Provider Name and Address Organization Details Last Updated DateTime 06/02/2024 152.4 cm 18.6 kg/m2 82250.28 g Padminisandy Salvador [facility] 06/02/2024 13:32:01 Social History None recorded. Functional Status None recorded. Mental Status None recorded. Family History Nothing Reported. Medical History No medical history recorded. Gynecological HistoryNo gynecological history recorded. Obstetrics History GPAL:G 0 P 0 0 0 0 Past Encounters Encounter ID Performer Location Encounter Start Date Encounter Closed Date Diagnosis/Indication Diagnosis SNOMED-CT Code Diagnosis ICD10 Code Diagnosis IMO Codes Diagnosis Note [id number] BHANU HERNANDEZ PA-C [facility] [address] [address] 06/02/2024 13:10:52 06/02/2024 13:46:54 Acute infective otitis externa 562623249 H60.393 Conductive hearing loss of right ear 8943874123 H90.A11 Mixed cond uctive and sensorineural hearing loss of left ear 9698016013 9107 H90.A32 [id number] BHANU HERNANDEZ PA-C [facility] [address] [address] 07/07/2024 13:16:49 07/07/2024 13:34:09 Acute infective otitis externa 124965753 H60.393 Otorrhea 80863965 H92.11 [id number] BHANU HERNANDEZ PA-C [facility] [address] [address] 08/23/2024 14:10:25 08/23/2024 14:32:12 Otorrhea 65997284 H92.11 Health Concerns Section Related Observation LastModified by Organization Detai ls LastModified Time None Recorded Concern Status LastModified by Organization Details LastModified Time None Recorded Advance Directives Directive None Recorded Payers Insurance Date Sequence Insurance Name Policy Number Policy Marlow Covered Member ID Marlow Member ID Guarantor Name 06/02/2024 2 [place] Diamond Restrepo [id number] Diamond Nelson 09/08/2024 1 [facility] [id number] Diamond Nelson [id number] Diamond Nelson Notes Date Note Type Note Provider Name and Address Organization Details Recorded Time 06/02/2024 text/html ROS as noted in the [facility] Patient comes in for evaluation of ears and hearing. Patient's last audiometric testing at this facility was 03/2021. Since that time, patient has noticed frequent otorrhea from both ears, and sometimes has pain. Recently the ears have been draining for several months. The hearing aid fits well and provides some benefit. VERNA FERNANDEZ MD [address], [address], [place] - [facility] 06/03/2024 07:38:21 07/07/2024 text/html ROS as noted in the [facility] 34 year old female presents for re-evaluation of otitis externa. Reports the ear is feeling better, not wet and not painful. Has been abiding by dry ear precautions and avoiding Q-tip use. TANESHA GARCIA MD 100 [facility],[address], [address], [place] - [facility] 07/07/2024 17:18:31 08/23/2024 text/html ROS as noted in the [facility] 34 year old female presents for re-evaluation of otitis externa. Reports the ear is feeling better, not wet and not painful. Has been abiding by dry ear precautions and avoiding Q-tip use. Still wears her hearing aid daily but takes it out as much as possible and cleans with an alcohol wipe. VERNA FERNANDEZ MD 100 [facility],[address], [address], [place] - [facility] 08/23/2024 17:33:26 OBGyn Episode No OBEpisode recorded.
== END 2025-03-22 16:46 | disposition home or self-care (01) ==
PROVIDERS: Emergency Provider Emergency Medicine; PCP Internal Medicine
DX: T16.1XXA Foreign body in right ear, initial encounter (principal); H92.01 Otalgia, right ear; W44.G1XA Audio device entering into or through a natural orifice, initial encounter; Y93.9 Activity, unspecified; Y92.9 Unspecified place or not applicable; Y99.8 Other external cause status
CPT/HCPCS: 69200; 99282; 99283